=== PATIENT | male | born 2000 | race Caucasian/White ===

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

== ENCOUNTER → 2018-08-19 | Outpatient (CLI) | payer BC ==
[~2018-08-19] MED LIST: CELEXA10 MG PO; PHENERGAN W/CO120 M1 PO; PREDNISONE20 MG PO; ZITHROMAX 250M250 MG PO
== END ==
LOC: COL.RAD 07:11
DX: N50.82 Scrotal pain (principal)

== ENCOUNTER → 2018-08-22 | Outpatient (CLI) | payer BC | LOC: COL.VAS 10:22 | DX: Z86.79 Personal history of other diseases of the circulatory system (principal) ==

== ENCOUNTER 2019-07-28 15:48 | Emergency (ER) | payer BC ==
[~2019-07-28] VITALS: Ht 182.9 cm; Wt 70.5 kg
[2019-07-28 15:53] VITALS: TEMP 97.4
[2019-07-28] MEDS ORDERED: NORCO 325 MG-51 TAB PO (18:32)
[2019-07-28 18:48] VITALS: BP 140/88; PULSE 63
== END 2019-07-28 19:14 | disposition home or self-care (01) ==
LOC: COL.ER 15:48
DX: S52.502A Unspecified fracture of the lower end of left radius, initial encounter for closed fracture (principal); S52.612A Displaced fracture of left ulna styloid process, initial encounter for closed fracture; F17.210 Nicotine dependence, cigarettes, uncomplicated; V00.131A Fall from skateboard, initial encounter
CPT/HCPCS: J1170; J2250; J2405; J2704; J7030; Q4050